=== PATIENT | female | born 1980 | race Caucasian/White ===

== ENCOUNTER 2021-07-08 13:56 | Outpatient (REF) | payer BC, SELFPAY | END 2021-07-08 13:57 | disposition home or self-care (01) | LOC: HO.LNP 13:56 | PROVIDERS: Visit Provider Physician Assistant Medical | DX: J02.9 Acute pharyngitis, unspecified (principal) | CPT/HCPCS: 87071; 87147 ==

== ENCOUNTER 2023-02-03 08:28 | Outpatient (REF) | payer BC, SELFPAY ==
--- NOTE | ~2023-02-03 | XR_ITS ---
EXAMINATION: XR HAND, RIGHT CLINICAL INFORMATION: Pain in the right hand COMPARISON: None available. TECHNIQUE: PA, lateral, and oblique views of the right hand. FINDINGS: The bone and joints appear normal without joint space narrowing or fracture. Small areas of calcification noted along the radial aspect of the first carpometacarpal joint and radial aspect of the head of the first metacarpal likely reflecting degenerative change or reflecting reactive changes related to old trauma. XR/XR hand RT min 3V IMPRESSION: 1. No acute abnormality. 2. Small areas of calcification as noted likely reflecting degenerative change or reactive changes related to old trauma.
== END 2023-02-03 08:29 | disposition home or self-care (01) ==
LOC: HO.HOSX 08:28
PROVIDERS: Visit Provider Orthopaedic Surgery
DX: M79.641 Pain in right hand (principal); R20.0 Anesthesia of skin; R20.2 Paresthesia of skin
CPT/HCPCS: 73130

== ENCOUNTER 2023-03-17 08:52 | Outpatient (REF) | payer BC, SELFPAY ==
--- NOTE | 2023-03-17 08:54 | EMG_ITS ---
Please see scanned EMG / Nerve Conduction Report. MTDD
== END 2023-03-17 08:53 | disposition home or self-care (01) ==
LOC: HO.NEURO 08:52
PROVIDERS: PCP Family Medicine; Visit Provider Orthopaedic Surgery
DX: R20.0 Anesthesia of skin (principal); R20.2 Paresthesia of skin
CPT/HCPCS: 95860; 95885; 95907; 95910

== ENCOUNTER 2023-04-21 08:41 | Outpatient (AMB) | payer BC, SELFPAY ==
[2023-04-21 08:44] VITALS: BMI 33.7
--- NOTE | 2023-04-21 08:44 | A.OFFVIS_ITS ---
Intake Vital Signs 04/21/23 08:44 Height 5 ft 3 in Weight 190 lb BMI 33.7 Intake Visit Reasons: OV-Right hand EMG review Intake Note: Charlette Meade 43 yr old female presents today for her right hand EMG review. States she would like to have surgery. Consent reviewed and signed. Allergies Sulfa (Sulfonamide Antibiotics) Allergy (Mild, Verified 04/21/23 08:54) hives HPI OV-Right hand EMG review HPI Details Charlette is a 42 year old right hand dominant woman who returns for a NCS review of her right hand numbness She continues to complains of intermittent numbness in the median nerve distribution, though she denies any small finger numbness. Symptoms intermittent, but daily, worse at night and accompanied by a burning sensation, along with weakness in her hands. She reports normal sensation today with only mild tingling in her fingertips. She says having very high levels of anxiety concerning medical procedures, and reports having a natalie attack during her NCS procedure. She became tearful in clinic today when discussing surgery and she would like to be put to sleep if possible. She reports having Carpal tunnel syndrome since she was 18, without treatment except wearing a wrist brace at night. She works at [employer], primarily typing on computers.? [facility] Medical History Depressed Seasonal allergies Social History Patient Tobacco Use Status: Never used Tobacco Current occupational status: employed Current occupation: rt hand/ [employer] Physical Exam Vital Signs: BMI result Body Mass Index 33.7 Const General: cooperative, healthy appearing and no acute distress Orientation/consciousness: patient oriented x3 HEENT Head: Yes normocephalic and Yes atraumatic Eyes EOM: EOMs intact bilaterally Resp Effort & Inspection: normal respiratory effort and able to speak in complete sentences Cardio Jugular venous distension: no JVD Skin General skin exam: turgor normal Rashes: no rashes Neuro General: patient oriented x3 Extrem Other: Evaluation of Right Upper Extremity: The patient is alert, oriented, and in no acute distress She became somewhat tearful in clinic when discussing surgery and has a fair amount of anxiety about medical procedures. Neuro: Median, Ulnar, Radial nerves motor and sensory intact and sensation is normal to the tips of all digits No thenar or intrinsic wasting Good APB muscle belly firing and good finger cross Vascular: Cap refill brisk ROM: She can make a fist and extend all her digits Skin: No lacerations or abrasions. General: No Ecchymosis. No Erythema or evidence of infection. Right side Nerve Conduction Study: Impression: Moderate carpal tunnel syndrome Normal EMG of the right C5-T1 innervated muscles Dr. Westbrook 03/17/23 Psych Appearance: grossly normal Affect: normal affect Attitude: cooperative Assessment & Plan Assessment & Plan (1) Carpal tunnel syndrome of right wrist: Code(s): G56.01 - Carpal tunnel syndrome, right upper limb Plan Assessment & Plan: 1. Right carpal tunnel syndrome, moderate Symptoms intermittent, but daily, worse at night I educated her about this condition I discussed operative and non-operative treatment options The patient would like to proceed with surgery When discussing surgery today in clinic the patient became tearful and reports having high levels of anxiety around medical procedures. She requested to be put under general anesthesia for this procedure I discuss this issue with her and about finding someone to speak to concerning this feeling. The risks and benefits of operative treatment were discussed with the patient and the patient wishes to proceed with surgery. These risks include, but are not limited to risk of damage to blood vessels, nerves, tendons, infection, recurrence, incomplete relief of preoperative symptoms, persistent pain, possible need for further surgery and the risks associated with regional blocks and anesthesia. The plan is to take the patient to the operating room sometime in the next few weeks for the following procedures: 1. Right carpal tunnel release, under general All of the preoperative paperwork including the consent was filled out today. All the patient's questions were answered. The patient understands that they will be contacted by our operations scheduler soon to schedule this procedure She denies Diabetes, blood thinners, asthma, heart, lung, kidney issues Scribed for Gini Santana MD by Samuel Pichardo, medical lab technician, on 04/21/23 at 9:05 AM, EST. Coding Level of Care Code Est Pt Level 4 (73109) Diagnoses Carpal tunnel syndrome of right wrist G56.01
== END 2023-04-21 09:14 | disposition home or self-care (01) ==
PROVIDERS: PCP Family Medicine; Visit Provider Orthopaedic Surgery
DX: G56.01 Carpal tunnel syndrome, right upper limb (principal)
CPT/HCPCS: 99214

== ENCOUNTER → 2023-04-21 08:41 | Outpatient (BNVA) | payer BC, SELFPAY | PROVIDERS: PCP Family Medicine; Visit Provider Orthopaedic Surgery ==

== ENCOUNTER 2023-07-19 06:10 | Day surgery (SDC) | payer BC, SELFPAY ==
[2023-07-15 15:07] VITALS: BMI 33.7
[2023-07-19 06:22] VITALS: BMI 38.9
[2023-07-19 06:35] VITALS: BP 119/71; PULSE 72; RESP 16; TEMP 36.1; O2SAT 96
[2023-07-19 06:35] LABS: UPreg QC Valid YES; Urine Pregnancy NEGATIVE (NEGATIVE)
[2023-07-19] MEDS: Lactated Ringers 1,000 ML 100 ML IVCONT (06:37)
--- NOTE | 2023-07-19 07:26 | P.CONAN_ITS ---
ON LICENSE OF [facility] Active Problems Active Problems: All Active Problems (Updated 04/21/23 @ 09:05 by Samuel Pichardo) Carpal tunnel syndrome of right wrist (Acute) Numbness and tingling in right hand (Acute) Acute pharyngitis (Acute) Past Medical History Medical History Seasonal allergies Depressed Surgical History History of Problems with Anesthesia: No Social History Social History Patient Tobacco Use Status: Never used Tobacco Advance Directives: No Advance Directives Information Provided: Yes Current occupational status: employed Current occupation: rt hand/ [employer] Narrative Narrative: : Meds Allergies Allergy/AdvReac Type Severity Reaction Status Date / Time Sulfa (Sulfonamide Allergy Mild hives Verified 04/21/23 08:54 Antibiotics) Active Medications: Current Medications Lactated Ringer's (Lr) 1,000 mls @ 100 mls/hr IVCONT .Q10H ANN Last Admin: 07/19/23 06:37 Dose: 100 mls/hr Home Medications Medication Instructions Recorded Confirmed Last Taken Type bupropion HCl 150 mg 24 hr tablet, 150 mg PO BEDTIME 07/08/21 07/15/23 Unknown History extended release cetirizine 10 mg tablet (Zyrtec) 10 mg PO DAILY PRN 07/08/21 Unknown History Exam Height,Weight and Vital Signs: Height 5 ft 3 in Weight 99.518 kg Last Vital Signs Temp 97 F 07/19/23 06:35 Pulse 72 07/19/23 06:35 Resp 16 07/19/23 06:35 BP 119/71 07/19/23 06:35 Pulse Ox 96 07/19/23 06:35 O2 Del Method Room Air 07/19/23 06:35 Pertinent Lab Results Pertinent Lab Results: Laboratory Tests 07/19/23 06:20 Urine Test NEGATIVE Airway Mallampati Class: II TM Dist: >3cm Neck ROM: Full Loose/Missing/Broken Teeth: No Heart: RRR Lungs: CTA Assessment and Plan Assessment Anesthesia Assessment: Anesthesia Plan Discussed and Chart Reviewed Final Anesthetic Review History of Problems with Anesthesia: No NPO: Yes ASA Class: II Final Preanesthetic Review: Meds/Allgs Chart Reviewed, Consent Obtained/Reviewed and Anes Risks/Benef Reviewed Patient Risk: Low Procedure Risk: Low Anesthetic Plan Anesthetic Plan: GA Disposition: Standard PACU
[2023-07-19 08:45] VITALS: BP 111/61; PULSE 78; RESP 18; TEMP 36.3; O2SAT 100
[2023-07-19 08:50] VITALS: BP 119/73; PULSE 68; RESP 18; O2SAT 99
--- NOTE | 2023-07-19 08:54 | MHC.SHP ---
Pre-Procedural Eval Section A Date of Service: 07/19/23 The patient is an INPATIENT: No Changes since office visit: No Cold of Flu in the past 2 weeks, No New Medical Problems, No Changes in Medication and No Patient answered all questions The History & Physical has been completed within 30 days and I have reviewed it.: Yes Section B Chief Complaint: Carpal tunnel syndrome, right upper limb Allergies: Allergies Allergy/AdvReac Type Severity Reaction Status Date / Time Sulfa (Sulfonamide Allergy Mild hives Verified 04/21/23 08:54 Antibiotics) Plan I have reviewed the history and physical and performed a pertinent physical examination on my patient. No changes have occurred unless specified. Time Spent With Patient Time: Total time managing care of this patient today ____ minutes.
--- NOTE | 2023-07-19 08:54 | W.PM.OPN ---
Operative Note Operative Note Date of Service: 07/19/23 Narrative: Operative Note Narrative: Preop diagnosis: Right carpal tunnel syndrome Postop diagnosis: Same Procedure: Right carpal tunnel release Surgeon: Gini Santana MD Anesthesia: General Anesthesia Findings: Thickened transverse carpal ligament Implants: None Tourniquet time: 6 minutes EBL: 5.0 ml Specimen: None Drains: None Complications: None Disposition: Brought to the recovery room in stable condition Plan: Follow-up in 10-14 days for wound check, suture removal and to check pathology Indications: The patient is a 43 year old woman with right carpal tunnel syndrome, and significant fear of having the procedure done under local anesthesia . The risks and benefits of operative treatment, including but not limited to risk of damage to blood vessels, nerves, tendons, infection, recurrence, persistent pain or numbness, incomplete resolution of preoperative symptoms, or need for further surgery were discussed with the patient and they wished to proceed with surgery. Procedure: Once consent was obtained patient was brought back to the operating suite and placed in the operating table in a supine position. . Perioperative antibiotics and anesthesia was administered by the anesthesia team. A tourniquet was applied to the proximal aspect of the right upper extremity and the limb was prepped and draped in a standard surgical fashion. The limb was elevated exsanguinated with Esmarch bandage and the tourniquet inflated to 250 mm of mercury for a total tourniquet time of 6 minutes. A 2.0 cm longitudinal incision was made centered over the right carpal tunnel. The incision was made through the skin to the subcutaneous tissues using a #15 blade. Dissection was made down to the level of the transverse carpal ligament with care being taken to protect the palmar cutaneous nerve. Once the transverse carpal ligament was clearly visualized, a longitudinal incision was made in the transverse carpal ligament 1st using a #15 blade, then using tenotomy scissors under direct visualization. Care was taken to look for and protect the motor branch of the median nerve when seen in this area. Once satisfied with our carpal tunnel release the wound was irrigated with normal saline. At this point the tourniquet was deflated and hemostasis obtained with a brief period of local pressure and bipolar electrocautery. The wound was copiously irrigated with normal saline. The skin edges were reapproximated with 5-0 nylon suture. The wound was infiltrated with some 1% lidocaine with epinephrine for postop pain control and a sterile dressing was applied. The patient appears to have tolerated the procedure well and with no complications. All digits were well vascularized conclusion of the case.
[2023-07-19 08:55] VITALS: BP 114/62; PULSE 68; RESP 18; O2SAT 100
[2023-07-19 09:00] VITALS: BP 119/67; PULSE 66; RESP 18; TEMP 36.5; O2SAT 99
== END 2023-07-19 09:47 | disposition home or self-care (01) ==
PROVIDERS: Nurse Practitioner; PCP Family Medicine; Visit Provider Orthopaedic Surgery
PROC: (CPT 64721; principal; 2023-07-19 07:30)
DX: G56.01 Carpal tunnel syndrome, right upper limb (principal); R20.0 Anesthesia of skin; R20.2 Paresthesia of skin; F32.A Depression, unspecified; J30.2 Other seasonal allergic rhinitis; Z88.2 Allergy status to sulfonamides; Z79.899 Other long term (current) drug therapy
CPT/HCPCS: 64721; 81025; J1885; J2250; J2371; J2704; J3010

== ENCOUNTER → 2023-07-19 06:10 | Outpatient (BNV) | payer BC, SELFPAY | PROVIDERS: PCP Family Medicine; Visit Provider Orthopaedic Surgery | DX: G56.01 Carpal tunnel syndrome, right upper limb (principal) | CPT/HCPCS: 64721 ==

== ENCOUNTER 2023-08-02 14:46 | Outpatient (AMB) | payer BC, SELFPAY ==
--- NOTE | 2023-08-02 14:50 | A.OFFVIS_ITS ---
Intake Intake Visit Reasons: PO-Rt CTR 07/19 Intake Note: Charlette a 43 year old male presents today for a post operative right CTR, DOS 07/19/23. Patient reports she is doing well, states her numbness and tingling has subsided since her surgery. Allergies Sulfa (Sulfonamide Antibiotics) Allergy (Mild, Verified 08/02/23 14:51) hives HPI PO-Rt CTR 07/19 HPI Details 43-year-old female who returns to the [facility] today for post-op right CTR, 07/19/23. She states her numbness and tingling has subsided since her surgery and is doing well overall. She has no concerns today. [facility] Medical History Seasonal allergies Depressed Social History Patient Tobacco Use Status: Never used Tobacco Current occupational status: employed Current occupation: rt hand/ [employer] Review of Systems Const All systems reviewed & are unremarkable except as noted in HPI and below Physical Exam Extrem Other: Right wrist: Incision clean, dry and intact. No erythema or drainage. She has full sensation throughout the hand. Pulses are present. Assessment & Plan Assessment & Plan (1) S/P carpal tunnel release: Code(s): Z98.890 - Other specified postprocedural states Plan Sutures removed today, steri strips applied. She will begin increasing activity as tolerated. I did stress the importance of no heavy lifting or grasping object for another 3-4 weeks. I did explain that in another 4-6 weeks, she can return to normal activities but if symptoms persist or worsens, patient will contact the office, otherwise follow-up as needed. Patient Instructions: Scribed for William Bustamante PA-C, by Leroy Garcia medical technologist hematology, on 08/02/2023 at 2:45 PM EST. I, William Bustamante PA-C, have personally reviewed and agree with the information entered by the scribe. Coding Level of Care Code Global (43078) Diagnoses S/P carpal tunnel release Z98.890
== END 2023-08-02 15:10 | disposition home or self-care (01) ==
PROVIDERS: PCP Family Medicine; Visit Provider Physician Assistant
DX: G56.01 Carpal tunnel syndrome, right upper limb (principal)
CPT/HCPCS: 99024

== ENCOUNTER → 2023-08-02 14:46 | Outpatient (BNVA) | payer BC, SELFPAY | PROVIDERS: PCP Family Medicine; Visit Provider Physician Assistant ==